=== PATIENT | female | born 1960 | race African-American/Black ===

== ENCOUNTER 2016-07-21 06:38 | Emergency (ER) | payer OTHER ==
[~2016-07-21] VITALS: Ht 167.6 cm; Wt 81.6 kg
[~2016-07-21 06:38] MED LIST: BACITRACIN1 EACH TOPIC; BACTRIM DS TAB1 EAC1 ORAL; BACTRIM-DS1 EA ORAL; BENADRYL25 MG PO; CEPHALEXIN500 MG ORAL; CLINDAMYCIN HC300 MG ORAL; LEVOTHYROXINE25 MCG ORAL; LITHIUM CARBON300 MG ORAL; PERIDEX 0.12% O16 OZ ORAL; RISPERDAL0.25 MG ORAL; SYNTHROID25 MCG ORAL
[2016-07-21] MEDS ORDERED: SYNTHROID137 MCG ORAL (06:56)
[2016-07-21 07:00] VITALS: BP 122/79
[2016-07-21] MEDS ORDERED: ZYRTEC10 MG ORAL (07:14)
[2016-07-21 07:35] VITALS: BP 122/79
--- NOTE | 2016-07-21 08:10 | Emergency Room Report ---
History of Present Illness General Chief Complaint: Earache Source: Patient Present Illness HPI Patient presents with complaints of pressure to both the ears Ongoing for the past 2-3 days Patient had a mild cold a few days ago with sore throat which has symptoms have improved Denies any chest pain or shortness of breath denies any headache or visual changes denies any neck pain or photophobia pain was 3/10 improved with taking Advil at home denies any other rash denies any change in hearing Allergies: Coded Allergies: AMOXICILLIN (Verified Allergy, Unknown, 07/21/16) Patient History Past Medical History: see triage record Pertinent Family History: none Last Menstrual Period: history of hysterectomy 2003 Now: No Reviewed Nursing Documentation: PMH: Agreed, PSxH: Agreed Nursing Documentation-PMH Hx Hypertension: Yes Hx COPD: Yes Hx Diabetes: No History Of Psychiatric Problem: Yes - bipolar Review of Systems All Other Systems: negative except mentioned in HPI Physical Exam Vital Signs Date Time Temp Pulse Resp B/P Pulse Ox O2 Delivery O2 Flow Rate FiO2 07/21/16 06:44 98.4 88 14 122/79 99 Room Air Sp02 EP Interpretation: reviewed, normal General Appearance: well appearing, no apparent distress Head: normocephalic, atraumatic Eyes: bilateral eye EOMI, bilateral eye PERRL ENT: hearing grossly normal, normal pharynx, TMs + canals normal, uvula midline Neck: full range of motion, supple, no meningismus, no bony tend Gastrointestinal: no hernia, no pulsatile mass, no rebound Musculoskeletal: normal inspection Neurologic: oriented x3, responsive, motor strength/tone normal, sensory intact Psychiatric: mood/affect normal Skin: normal color, no rash, warm/dry, palpation normal Lymphatic: normal inspection, no adenopathy Medical Decision Making Diagnostic Impression: Primary Impression: Earache symptoms in left ear ER Course Patient's ear exam is at baseline levels I do not appreciate any erythema or inflammation canal is also clear Possibly secondary to the recent URI symptoms and possible fluid behind the ears But this was not clinically appreciated Patient was provided with decongestant and will have initial conservative outpatient trial Last Vital Signs Date Time Temp Pulse Resp B/P Pulse Ox O2 Delivery O2 Flow Rate FiO2 07/21/16 07:35 98.4 88 14 122/79 99 Room Air Status: unchanged Disposition: HOME, SELF-CARE Condition: Stable Scripts Cetirizine Hcl* (ZYRTEC*) 10 Mg Tablet 10 MG ORAL DAILY, #20 TAB 0 Refills Prov: HAMMAD HASTINGS D.O. 07/21/16 Referrals: [facility] (PCP) Patient Instructions: Earache Additional Instructions: Patient is provided with the discharge instructions notified to follow up with primary doctor in the next 2-3 days otherwise return to the er with any worsening symptoms. HAMMAD HASTINGS D.O. Jul 21, 2016 08:10
== END 2016-07-21 07:37 | disposition home or self-care (01) ==
LOC: EMR 07:07
DX: H92.02 Otalgia, left ear (principal); F31.9 Bipolar disorder, unspecified; I10 Essential (primary) hypertension; Z90.710 Acquired absence of both cervix and uterus; Z88.1 Allergy status to other antibiotic agents
CPT/HCPCS: 99282

== ENCOUNTER 2017-11-02 14:09 | Emergency (ER) | payer OTHER ==
[~2017-11-02] VITALS: Ht 165.1 cm; Wt 81.6 kg
[~2017-11-02 14:09] MED LIST changes: +SYNTHROID137 MCG ORAL; +ZYRTEC10 MG ORAL
[2017-11-02] MEDS ORDERED: CLINDAMYCIN PO (14:25)
[2017-11-02] MEDS ORDERED: Isovue-300 100ml vial INJ PRN (14:45)
[2017-11-02 14:50] VITALS: BP 118/79
[2017-11-02 15:01] LABS: APPEARANCE,URINE CLEAR; BILIRUBIN, URINE NEGATIVE (NEGATIVE); COLOR,URINE YELLOW; GLUCOSE, URINE (UA) NEGATIVE (NEGATIVE); KETONES,URINE NEGATIVE (NEGATIVE); LEUKOCYTE ESTERASE ,URINE 1+ (NEGATIVE); NITRITE,URINE NEGATIVE (NEGATIVE); PH,URINE 7 (4.5-8.0); PROTEIN,URINE 3+ (NEGATIVE); UROBILINOGEN,URINE 1 MG/DL (0.0-1.0)
[2017-11-02 15:03] LABS: HEMATOCRIT 40.7 % (37.0-47.0); HEMOGLOBIN 13.8 G/DL (12.0-16.0); MEAN CORPUSCULAR VOLUME 89 FL (80-99); PLATELET COUNT 292 K/UL (150-450); RED BLOOD COUNT 4.59 M/UL (4.20-5.40); RED CELL DISTRIBUTION WIDTH 12.3 % (11.6-14.8); WHITE BLOOD COUNT 17.7 K/UL (4.8-10.8)
[2017-11-02 15:18] LABS: ANION GAP 9 mmol/L (5-15); BLOOD UREA NITROGEN 11 mg/dL (7-18); CALCIUM 9.6 MG/DL (8.5-10.1); CARBON DIOXIDE 28 MMOL/L (21-32); CHLORIDE 96 MMOL/L (98-107); CREATININE 1.3 MG/DL (0.55-1.30); POTASSIUM 3.2 MMOL/L (3.5-5.1); SODIUM 133 MMOL/L (136-145)
[2017-11-02 15:29] LABS: ALANINE AMINOTRANSFERASE 43 U/L (12-78); ALBUMIN 3.5 G/DL (3.4-5.0); ALBUMIN/GLOBULIN RATIO 0.8 (1.0-2.7); ALKALINE PHOSPHATASE 79 U/L (46-116); ASPARTATE AMINO TRANSFERASE 31 U/L (15-37); BILIRUBIN,TOTAL 1.6 MG/DL (0.2-1.0)
[2017-11-02 15:30] LABS: BILIRUBIN,DIRECT 0.3 MG/DL (0.0-0.3)
--- NOTE | 2017-11-02 16:06 | Diagnostic Imaging Report ---
Indication: Abdominal pain Technique: Continuous helical transaxial imaging of the abdomen and pelvis was obtained from the lung bases to the pubic symphysis during intravenous contrast administration. Coronal 2-D reformats were also obtained. Study obtained in a Siemens sensation [address] Automatic Exposure Control was utilized. Total Dose length Product (DLP): 881.[address] Dose Index Volume (CTDIvol): 16.14 mGy Comparison: None Findings: There is moderate gallbladder wall edema. There is a rounded low-attenuation focus suspicious for a gallstone at the gallbladder base. There is a moderate degree of surrounding soft tissue stranding which involves the area immediately subjacent to the gallbladder but also involving the distal part of the stomach and duodenum. The findings probably related to cholecystitis. Differential includes peptic ulcer disease and duodenitis. Correlate clinically. There is a 3 cm well-circumscribed air and fluid-containing focus adjacent to the gallbladder and pylorus. This may be a duodenal diverticulum. There is periportal edema also present. Small amount of free fluid noted within the pelvis. No evidence of bowel obstruction or free air. Right renal cyst noted. The liver and spleen are unremarkable. The lung bases are clear. Adrenal glands, pancreas appear unremarkable. IMPRESSION: Inflammation in the right upper quadrant of the abdomen. Suspect this is secondary to acute cholecystitis given the moderate wall thickening and suspected stone within the gallbladder lumen. Differential includes peptic ulcer disease and duodenitis. Duodenitis is present and is probably a secondary phenomenon. Periportal edema. No definite abscess. Mild free fluid in the pelvis. Atherosclerotic disease. Right renal cyst The CT scanner at [facility] is accredited by the [employer] and the scans are performed using dose optimization techniques as appropriate to a performed exam including Automatic Exposure control.
[2017-11-02 16:57] VITALS: BP 126/87
[2017-11-02] MEDS ORDERED: Levofloxacin 500mg tab ORAL ONE (17:15)
[2017-11-02 17:16] VITALS: BP 126/87
--- NOTE | 2017-11-02 19:00 | Emergency Room Report ---
History of Present Illness General Chief Complaint: Abdominal Pain Source: Patient Present Illness HPI Patient is a 57-year-old female who presented after increased right-sided abdominal pain for the past few days. Patient reports having increased abdominal discomfort. She stated that she vomited one time. She denies any fever. She reports having worsening pain with movement. She denies recent trauma. Allergies: Coded Allergies: AMOXICILLIN (Verified Allergy, Unknown, Rash, 11/02/17) Patient History Past Medical History: see triage record Past Surgical History: unable to obtain Nursing Documentation-PMH Hx Hypertension: Yes Hx COPD: Yes Hx Diabetes: No Review of Systems All Other Systems: negative except mentioned in HPI Physical Exam Vital Signs Date Time Temp Pulse Resp B/P (MAP) Pulse Ox O2 Delivery O2 Flow Rate FiO2 11/02/17 14:20 98.7 111 20 120/72 97 Room Air 98.8 Sp02 EP Interpretation: reviewed, normal General Appearance: normal inspection, well appearing, no apparent distress, alert, GCS 15 Head: atraumatic ENT: normal ENT inspection, hearing grossly normal, normal voice Neck: normal inspection, full range of motion, supple, no bony tend Respiratory: normal inspection, lungs clear, normal breath sounds, no respiratory distress, no retraction, no wheezing Cardiovascular #1: regular rate, rhythm, no edema Gastrointestinal: normal bowel sounds, soft, tenderness, hepatomegaly Genitourinary: no CVA tenderness Musculoskeletal: normal inspection, back normal, normal range of motion Neurologic: normal inspection, alert, oriented x3, responsive, motor vehicle or caravan salesperson III-XII nml as tested, speech normal Psychiatric: normal inspection, judgement/insight normal, mood/affect normal Skin: normal inspection, normal color, no rash Medical Decision Making Diagnostic Impression: Primary Impression: Cholecystitis, acute with cholelithiasis ER Course Patient presented for abdominal pain. Differential diagnoses included ischemic bowel, appendicitis, perforated viscus, abdominal aortic aneurysm, inferior myocardial infarction, viral gastroenteritis Because of complexity of patient's case laboratory testing and imaging studies were ordered. The CT imaging read by radiology showed evidence of acute cholecystitis and possible duodenitis. The patient was given oral antibiotics. The patient was advised risk benefits alternatives of leaving AGAINST MEDICAL ADVICE and he indicated understanding and all questions are answered patient still continued want to leave and signed AGAINST MEDICAL ADVICE. Despite risks including but not limited to disability and worsening of current lifestyle. Patient was advised that she needed to be hospitalized for further management of cholecystitis which may cause worsening infection, perforation of her intestine or gallbladder or worsening surgical complications. The patient was advised she could return if she changed her mind. Labs Test 11/02/17 14:40 White Blood Count 17.7 K/UL (4.8-10.8) Red Blood Count 4.59 M/UL (4.20-5.40) Hemoglobin 13.8 G/DL (12.0-16.0) Hematocrit 40.7 % (37.0-47.0) Mean Corpuscular Volume 89 FL (80-99) Mean Corpuscular Hemoglobin 30.2 PG (27.0-31.0) Mean Corpuscular Hemoglobin Concent 34.0 G/DL (32.0-36.0) Red Cell Distribution Width 12.3 % (11.6-14.8) Platelet Count 292 K/UL (150-450) Mean Platelet Volume 6.1 FL (6.5-10.1) Neutrophils (%) (Auto) % (45.0-75.0) Lymphocytes (%) (Auto) % (20.0-45.0) Monocytes (%) (Auto) % (1.0-10.0) Eosinophils (%) (Auto) % (0.0-3.0) Basophils (%) (Auto) % (0.0-2.0) Differential Total Cells Counted 100 Neutrophils % (Manual) 87 % (45-75) Lymphocytes % (Manual) 7 % (20-45) Monocytes % (Manual) 6 % (1-10) Eosinophils % (Manual) 0 % (0-3) Basophils % (Manual) 0 % (0-2) Band Neutrophils 0 % (0-8) Platelet Estimate Adequate Platelet Morphology Normal Red Blood Cell Morphology Normal Prothrombin Time 10.7 SEC (9.30-11.50) Prothromb Time International Ratio 1.0 (0.9-1.1) Activated Partial Thromboplast Time 32 SEC (23-33) Urine Color Yellow Urine Appearance Clear Urine pH 7 (4.5-8.0) Urine Specific [place] 1.010 (1.005-1.035) Urine Protein 3+ (NEGATIVE) Urine Glucose (UA) Negative (NEGATIVE) Urine Ketones Negative (NEGATIVE) Urine Occult Blood 2+ (NEGATIVE) Urine Nitrite Negative (NEGATIVE) Urine Bilirubin Negative (NEGATIVE) Urine Urobilinogen 1 MG/DL (0.0-1.0) Urine Leukocyte Esterase 1+ (NEGATIVE) Urine RBC 2-4 /HPF (0 - 2) Urine WBC 0-2 /HPF (0 - 2) Urine Squamous Epithelial Cells Few /LPF (NONE/OCC) Urine Amorphous Sediment Few /LPF (NONE) Urine Bacteria Few /HPF (NONE) Sodium Level 133 MMOL/L (136-145) Potassium Level 3.2 MMOL/L (3.5-5.1) Chloride Level 96 MMOL/L (98-107) Carbon Dioxide Level 28 MMOL/L (21-32) Anion Gap 9 mmol/L (5-15) Blood Urea Nitrogen 11 mg/dL (7-18) Creatinine 1.3 MG/DL (0.55-1.30) Estimat Glomerular Filtration Rate 50.8 mL/min (>60) Glucose Level 146 MG/DL (74-106) Calcium Level 9.6 MG/DL (8.5-10.1) Total Bilirubin 1.6 MG/DL (0.2-1.0) Direct Bilirubin 0.3 MG/DL (0.0-0.3) Aspartate Amino Transf (AST/SGOT) 31 U/L (15-37) Alanine Aminotransferase (ALT/SGPT) 43 U/L (12-78) Alkaline Phosphatase 79 U/L (46-116) Total Protein 8.1 G/DL (6.4-8.2) Albumin 3.5 G/DL (3.4-5.0) Globulin 4.6 g/dL Albumin/Globulin Ratio 0.8 (1.0-2.7) Lipase 85 U/L (73-393) Last Vital Signs Date Time Temp Pulse Resp B/P (MAP) Pulse Ox O2 Delivery O2 Flow Rate FiO2 11/02/17 17:16 98.7 101 19 126/87 97 Room Air 98.8 Status: unchanged Disposition: AGAINST MEDICAL ADVICE Condition: Serious Referrals: NON PHYSICIAN (PCP) Fernando Neumann November 02, 2017 19:00
== END 2017-11-02 17:55 | disposition left against medical advice (07) ==
LOC: EMR 15:16 → CANBEDREQ 17:14 → EMR 17:55
DX: K81.0 Acute cholecystitis (principal); J44.9 Chronic obstructive pulmonary disease, unspecified; I10 Essential (primary) hypertension; Z88.1 Allergy status to other antibiotic agents
CPT/HCPCS: 36415; 74177; 80053; 81003; 82248; 83690; 85007; 85025; 85610; 85730; 99283; Q9967

== ENCOUNTER 2017-11-03 18:05 | Emergency (ER) | payer OTHER ==
[~2017-11-03] VITALS: Ht 167.6 cm; Wt 81.6 kg
[~2017-11-03 18:05] MED LIST changes: +CLINDAMYCIN PO
--- NOTE | 2017-11-03 18:32 | Emergency Room Report ---
History of Present Illness General Chief Complaint: Abdominal Pain Present Illness HPI Patient is a 57-year-old female seen by me yesterday for abdominal pain. Patient was noted to have a CT imaging with multiple gallstones as well as laboratory changes consistent with cholecystitis. The patient was additionally noted to have some duodenitis on CT. The patient reports having a persistent pain. She was given a dose of antibiotics yesterday. She left AGAINST MEDICAL ADVICE. Allergies: Coded Allergies: AMOXICILLIN (Verified Allergy, Unknown, Rash, 11/02/17) Patient History Past Medical History: see triage record Reviewed Nursing Documentation: PMH: Agreed; PSxH: Agreed Nursing Documentation-PMH Hx Hypertension: Yes Hx COPD: Yes Hx Diabetes: No Review of Systems All Other Systems: negative except mentioned in HPI Physical Exam Vital Signs Date Time Temp Pulse Resp B/P (MAP) Pulse Ox O2 Delivery O2 Flow Rate FiO2 11/03/17 18:08 99.0 115 20 119/72 96 Room Air 99.0 Sp02 EP Interpretation: reviewed, normal General Appearance: normal inspection, well appearing, no apparent distress, alert, obese Head: atraumatic ENT: normal ENT inspection, hearing grossly normal, normal voice Neck: normal inspection, full range of motion, supple, no bony tend Respiratory: normal inspection, lungs clear, normal breath sounds, no respiratory distress, no retraction, no wheezing Cardiovascular #1: regular rate, rhythm, no edema Gastrointestinal: normal inspection, normal bowel sounds, non tender, soft, no guarding, no hernia Genitourinary: no CVA tenderness Musculoskeletal: normal inspection, back normal, normal range of motion Neurologic: normal inspection, alert, oriented x3, responsive, category planner III-XII nml as tested, speech normal Psychiatric: normal inspection, judgement/insight normal, mood/affect normal Skin: normal inspection, normal color, no rash Medical Decision Making Diagnostic Impression: Primary Impression: Cholecystitis, acute with cholelithiasis ER Course Patient presented for abdominal pain. Differential diagnoses included ischemic bowel, appendicitis, perforated viscus, abdominal aortic aneurysm, inferior myocardial infarction, viral gastroenteritis. Because of complexity of patient' s case laboratory testing and imaging studies were ordered. Because of complexity of patient's case laboratory testing and imaging studies were ordered. Laboratory testing showed a persistent elevated white blood count. Patient was discussed with Dr.Manuel rodriguez for [facility] facility for transfer to [facility]. Labs Test 11/03/17 18:30 White Blood Count 15.4 K/UL (4.8-10.8) Red Blood Count 4.06 M/UL (4.20-5.40) Hemoglobin 12.3 G/DL (12.0-16.0) Hematocrit 35.8 % (37.0-47.0) Mean Corpuscular Volume 88 FL (80-99) Mean Corpuscular Hemoglobin 30.4 PG (27.0-31.0) Mean Corpuscular Hemoglobin Concent 34.4 G/DL (32.0-36.0) Red Cell Distribution Width 12.0 % (11.6-14.8) Platelet Count 245 K/UL (150-450) Mean Platelet Volume 6.6 FL (6.5-10.1) Neutrophils (%) (Auto) 84.9 % (45.0-75.0) Lymphocytes (%) (Auto) 7.7 % (20.0-45.0) Monocytes (%) (Auto) 6.0 % (1.0-10.0) Eosinophils (%) (Auto) 1.0 % (0.0-3.0) Basophils (%) (Auto) 0.4 % (0.0-2.0) Prothrombin Time 10.5 SEC (9.30-11.50) Prothromb Time International Ratio 1.0 (0.9-1.1) Activated Partial Thromboplast Time 38 SEC (23-33) Sodium Level 133 MMOL/L (136-145) Potassium Level 3.0 MMOL/L (3.5-5.1) Chloride Level 97 MMOL/L (98-107) Carbon Dioxide Level 29 MMOL/L (21-32) Anion Gap 7 mmol/L (5-15) Blood Urea Nitrogen 17 mg/dL (7-18) Creatinine 1.6 MG/DL (0.55-1.30) Estimat Glomerular Filtration Rate 40.0 mL/min (>60) Glucose Level 173 MG/DL (74-106) Calcium Level 9.7 MG/DL (8.5-10.1) Last Vital Signs Date Time Temp Pulse Resp B/P (MAP) Pulse Ox O2 Delivery O2 Flow Rate FiO2 11/03/17 18:08 99.0 115 20 119/72 96 Room Air 99.0 Status: unchanged Disposition: XFER SHT-TRM HOSP Condition: Serious Referrals: [facility] (PCP) Fernando Neumann November 03, 2017 18:32
[2017-11-03 19:01] LABS: BASOPHILS % (AUTO) 0.4 % (0.0-2.0); HEMATOCRIT 35.8 % (37.0-47.0); HEMOGLOBIN 12.3 G/DL (12.0-16.0); LYMPHOCYTES % (AUTO) 7.7 % (20.0-45.0); MEAN CORPUSCULAR VOLUME 88 FL (80-99); NEUTROPHILS % (AUTO) 84.9 % (45.0-75.0); PLATELET COUNT 245 K/UL (150-450); RED BLOOD COUNT 4.06 M/UL (4.20-5.40); WHITE BLOOD COUNT 15.4 K/UL (4.8-10.8)
[2017-11-03 19:14] LABS: ANION GAP 7 mmol/L (5-15); BLOOD UREA NITROGEN 17 mg/dL (7-18); CALCIUM 9.7 MG/DL (8.5-10.1); CARBON DIOXIDE 29 MMOL/L (21-32); CHLORIDE 97 MMOL/L (98-107); CREATININE 1.6 MG/DL (0.55-1.30); SODIUM 133 MMOL/L (136-145)
[2017-11-03 19:24] LABS: ALANINE AMINOTRANSFERASE 188 U/L (12-78); ALBUMIN/GLOBULIN RATIO 0.6 (1.0-2.7); ALKALINE PHOSPHATASE 141 U/L (46-116); ASPARTATE AMINO TRANSFERASE 100 U/L (15-37); BILIRUBIN,TOTAL 1.4 MG/DL (0.2-1.0)
[2017-11-03 19:27] LABS: BILIRUBIN,DIRECT 0.4 MG/DL (0.0-0.3)
[2017-11-03 19:35] LABS: APPEARANCE,URINE CLEAR; BILIRUBIN, URINE NEGATIVE (NEGATIVE); GLUCOSE, URINE (UA) NEGATIVE (NEGATIVE); KETONES,URINE NEGATIVE (NEGATIVE); LEUKOCYTE ESTERASE ,URINE 1+ (NEGATIVE); NITRITE,URINE NEGATIVE (NEGATIVE); PH,URINE 6 (4.5-8.0); PROTEIN,URINE 3+ (NEGATIVE); UROBILINOGEN,URINE 1 MG/DL (0.0-1.0)
[2017-11-03 19:36] LABS: COLOR,URINE YELLOW
[2017-11-03 20:04] VITALS: BP 112/68
[2017-11-03 20:32] VITALS: BP 112/68
== END 2017-11-03 20:33 | disposition short-term general hospital (02) ==
LOC: EMR 18:29
DX: K80.00 Calculus of gallbladder with acute cholecystitis without obstruction (principal); E11.9 Type 2 diabetes mellitus without complications; J44.9 Chronic obstructive pulmonary disease, unspecified; I10 Essential (primary) hypertension; Z88.0 Allergy status to penicillin
CPT/HCPCS: 36415; 80053; 81003; 82248; 83690; 85025; 85610; 85730; 86850; 86900; 86901; 96374; 99285; J2405

== ENCOUNTER 2017-11-12 12:06 | Emergency (ER) | payer OTHER ==
[~2017-11-12] VITALS: Ht 167.6 cm; Wt 79.4 kg
--- NOTE | 2017-11-12 12:41 | Emergency Room Report ---
History of Present Illness General Chief Complaint: Wound Recheck/Suture Removal Present Illness HPI 57 yo female patient presents to the ER for wound change. Patient reports hx of gallbladder surgery. Patient was previously seen in [facility] for complications following procedure and transferred to another hospital. Patient reports was discharged 2 days ago without complications. patient reports that her doctor, Dr. Martin, has scheduled for follow-up appointment for a week from Wednesday. Patient was instructed by surgeon to come to ER for wound dressing change because his office is not open currently. patient denies acute symptoms at this time. Patient denies fever, chest pain, shortness breath, abdominal pain, nausea, vomiting, diarrhea. Allergies: Coded Allergies: AMOXICILLIN (Verified Allergy, Unknown, Rash, 11/02/17) Patient History Past Medical History: see triage record Reviewed Nursing Documentation: PMH: Agreed; PSxH: Agreed Nursing Documentation-PMH Hx Hypertension: Yes Hx COPD: Yes Hx Diabetes: No Hx Gastrointestinal Problems: Yes - Hysterectomy (2003), gall bladder surgery Review of Systems All Other Systems: negative except mentioned in HPI Physical Exam Vital Signs Date Time Temp Pulse Resp B/P (MAP) Pulse Ox O2 Delivery O2 Flow Rate FiO2 11/12/17 12:21 98.7 86 18 116/76 98 Room Air 98.8 Sp02 EP Interpretation: reviewed, normal General Appearance: well appearing, no apparent distress, alert, GCS 15, non- toxic Head: normocephalic, atraumatic Eyes: bilateral eye normal inspection, bilateral eye PERRL Neck: full range of motion Respiratory: lungs clear, normal breath sounds, no rhonchi, no respiratory distress, no accessory muscle use, no wheezing, speaking full sentences Cardiovascular #1: regular rate, rhythm, no edema Musculoskeletal: back normal, digits/nails normal, gait/station normal, normal range of motion, non-tender Psychiatric: mood/affect normal Skin: other - abdominal drain tube, RLQ: no erythema, no edema, no TTP Medical Decision Making PA Attestation Dr. Vernon is my supervising Physician whom patient management has been discussed with. Diagnostic Impression: Primary Impression: Encounter for postoperative wound check ER Course Pt. presents to the ED requesting wound check on abdomen. Ddx considered but are not limited to cellulitis, abscess, wound check. Vital signs: are WNL, pt. is afebrile ER COURSE: PE 4 incision sites, one with draining tube. Dressing covering draining dirty with dried blood, will change this dressing; other dressings clean, do not require change. patient is afebrile, no signs of toxicity, no acute complaints, patient does not require labs at this time. Wound has no signs of infection., no erythema, edema, TTP, sensation is intact to light touch, no active bleeding. Wound redressed with sterile gauze and dressing. patient able ambulate without difficulty, no acute distress, stable for discharge. DISCHARGE: Patient instructed to continue with medications per initial ER provider instructions. At this time pt. is stable for d/c to home. Patient resting comfortably, in no acute distress, nontoxic appearing. Will provide printed patient care instructions and any necessary prescriptions. Care plan and follow up instructions have been discussed with the patient prior to discharge. Patient instructed to follow-up with primary care provider for further treatment and referral. Patient questions asked and answered. ER precautions given. Patient instructed to return to ER immediately for any new or worsening of symptoms including but not limited to fever, worsening of pain symptoms. - Please note that this Emergency Department Report was dictated using [employer] operations coordinator technology software, occasionally this can lead to erroneous entry secondary to interpretation by the dictation equipment. Last Vital Signs Date Time Temp Pulse Resp B/P (MAP) Pulse Ox O2 Delivery O2 Flow Rate FiO2 11/12/17 12:21 98.7 86 18 116/76 98 Room Air 98.8 Disposition: HOME, SELF-CARE Condition: Stable Patient Instructions: Wound Check Additional Instructions: Followup with primary care provider at scheduled appointment, return to ER sooner if symptoms present. Take medications as directed. Patient questions asked and answered. ER precautions given, patient instructed to return to ER immediately for any new or worsening of symptoms. Last Hernandez November 12, 2017 12:41
[2017-11-12 13:03] VITALS: BP 116/76
[2017-11-12 13:05] VITALS: BP 116/76
== END 2017-11-12 13:05 | disposition home or self-care (01) ==
LOC: EMR 12:37
DX: Z48.01 Encounter for change or removal of surgical wound dressing (principal); I10 Essential (primary) hypertension; J44.9 Chronic obstructive pulmonary disease, unspecified; Z88.0 Allergy status to penicillin
CPT/HCPCS: 99283

== ENCOUNTER 2017-11-21 12:46 | Emergency (ER) | payer OTHER ==
[~2017-11-21] VITALS: Ht 167.6 cm; Wt 68.0 kg
[2017-11-21 13:20] VITALS: BP 109/76
--- NOTE | 2017-11-21 13:22 | Emergency Room Report ---
History of Present Illness General Chief Complaint: Wound Recheck/Suture Removal Source: Patient Present Illness HPI Patient presents with request for evaluation and possible changing of her abdominal wound dressing Patient had labs A cholecystectomy 2 weeks ago and has a drain in place Patient is seeing her surgeon tomorrow for evaluation however presents for changing of the dressing Denies any fevers and eyes any discharge denies any abdominal pain Allergies: Coded Allergies: AMOXICILLIN (Verified Allergy, Unknown, Rash, 11/02/17) Patient History Past Medical History: see triage record Pertinent Family History: none Reviewed Nursing Documentation: PMH: Agreed; PSxH: Agreed Nursing Documentation-PMH Hx Hypertension: Yes Hx COPD: Yes Hx Diabetes: No Hx Gastrointestinal Problems: Yes - Hysterectomy (2003), gall bladder surgery Review of Systems All Other Systems: negative except mentioned in HPI Physical Exam Vital Signs Date Time Temp Pulse Resp B/P (MAP) Pulse Ox O2 Delivery O2 Flow Rate FiO2 11/21/17 12:53 98.1 87 20 109/76 99 Room Air 98.1 Sp02 EP Interpretation: reviewed, normal General Appearance: well appearing, no apparent distress Head: normocephalic, atraumatic Eyes: bilateral eye PERRL, bilateral eye EOMI ENT: hearing grossly normal, normal pharynx, TMs + canals normal, uvula midline Neck: full range of motion, supple, no meningismus, no bony tend Respiratory: lungs clear, normal breath sounds, no rhonchi, no respiratory distress, no retraction, no accessory muscle use Cardiovascular #1: normal peripheral pulses, regular rate, rhythm, no edema, no gallop, no JVD, no murmur Gastrointestinal: soft, no mass, no organomegaly, non-distended, no guarding, no hernia, no pulsatile mass, no rebound, other - Drain tube in place in the right mid lower abdominal area, no surrounding cellulitis, no drainage soft touch Genitourinary: no CVA tenderness Musculoskeletal: normal inspection Neurologic: oriented x3, responsive, broadcast field supervisor III-XII nml as tested, motor strength/ tone normal, sensory intact Psychiatric: mood/affect normal Skin: no rash, warm/dry, palpation normal Lymphatic: normal inspection, no adenopathy Medical Decision Making Diagnostic Impression: Primary Impression: wound check Additional Impression: Encounter for dressing change or suture removal ER Course Given the patient's presentation the dressing that was in place was removed it appeared extremely dirty, and patient reports the last time it was changed was here about 7 days ago. The dressing was changed and the patient is stable for follow-up tomorrow with her general surgeon, Last Vital Signs Date Time Temp Pulse Resp B/P (MAP) Pulse Ox O2 Delivery O2 Flow Rate FiO2 11/21/17 12:53 98.1 87 20 109/76 99 Room Air 98.1 Status: improved Disposition: HOME, SELF-CARE Condition: Improved Patient Instructions: Wound Check, Dressing Change Additional Instructions: Patient is provided with the discharge instructions notified to follow up with primary doctor in the next 2-3 days otherwise return to the er with any worsening symptoms. Please note that this report is being documented using [employer] technology. This can lead to erroneous entry secondary to incorrect interpretation by the dictating instrument. Clau Pugh DO November 21, 2017 13:22
[2017-11-21 15:45] VITALS: BP 109/76
== END 2017-11-21 15:45 | disposition home or self-care (01) ==
LOC: EMR 13:15
DX: Z48.01 Encounter for change or removal of surgical wound dressing (principal); Z90.49 Acquired absence of other specified parts of digestive tract; Z88.0 Allergy status to penicillin; I10 Essential (primary) hypertension; J44.9 Chronic obstructive pulmonary disease, unspecified
CPT/HCPCS: 99282

== ENCOUNTER 2019-10-18 20:51 | Emergency (ER) | payer OTHER ==
[~2019-10-18] VITALS: Ht 167.6 cm; Wt 81.6 kg
[2019-10-18] MEDS ORDERED: TRAZODONE HCL150 MG ORAL (21:04)
[2019-10-18] MEDS ORDERED: NORVASC5 MG ORAL (21:04)
[2019-10-18 21:05] VITALS: BP 153/92
--- NOTE | 2019-10-18 21:05 | NUR ---
ED Nurse Note: Pt walked into ED for c/o chest pain onset 3 days ago. Pt states pain is sharp/throbbing in nature and radiates to shoulders and up the back of her head. Pt is aaox4, breathing is normal and unlabored, no cardiac distress noted. Pt placed on teletypesetter monitor. EKG bedside, will continue to monitor. No n/v/d noted.
--- NOTE | 2019-10-18 21:14 | Emergency Room Report ---
History of Present Illness General Chief Complaint: Headache Source: Patient Present Illness HPI Disclaimer: Please note that this report is being documented using DRAGON technology. This can lead to erroneous entry secondary to incorrect interpretation by the dictating instrument. HPI: 59-year-old female history of hypertension presents for evaluation of palpitations. Symptoms present for the past 2 days. She notes a funny sensation in her chest as well as sharp stabbing chest pains that are worse with arm movements. She feels pain radiating up into the shoulders the back of the neck and the back of the head causing a mild headache. She denied any pressure-like sensation, shortness of breath, cough, fever, chills, nausea, vomiting, diaphoresis, abdominal pain, diarrhea or other changes in her health. No prior history of CAD. She does take blood pressure medication has a long smoking history. She is trying to quit smoking currently. Currently not experiencing any pain or discomfort. PMH: Hypertension, depression, hypothyroidism PSH: Partial hysterectomy Allergies: Amoxicillin Social Hx: Regular tobacco use, currently quitting Allergies: Coded Allergies: AMOXICILLIN (Verified Allergy, Unknown, Rash, 11/02/17) COVID-19 Screening Contact w/high risk pt: No Recent Travel to affected area: No Experienced COVID-19 symptoms?: No Patient History Last Menstrual Period: 1999 Now: No : 4 Para: 0 Nursing Documentation-PMH Hx Cardiac Problems: No - hypothyroid Hx Hypertension: Yes Hx COPD: Yes Hx Diabetes: No Hx Gastrointestinal Problems: Yes - Hysterectomy (2003), gall bladder surgery History Of Psychiatric Problem: Yes - bipolar Hx Neurological Problems: Yes - insomnia Review of Systems All Other Systems: negative except mentioned in HPI Physical Exam Vital Signs Date Time Temp Pulse Resp B/P (MAP) Pulse Ox O2 Delivery O2 Flow Rate FiO2 10/18/19 20:56 98.1 90 17 153/92 (112) 97 Room Air General: Awake and alert, no acute distress HEENT: NC/AT. EOMI. Chest Wall: No tenderness, no deformity Cardiovascular: RRR. S1 and S2 normal. No murmur appreciated Resp: Normal work of breathing. No cough, wheezing or crackles appreciated Abdomen: Abdomen is soft, nondistended. Nontender Skin: Intact. No abrasions, laceration or rash over the exposed skin MSK: Normal tone and bulk. Moving all extremities. No obvious deformity. Neuro: Awake and alert. Mentating appropriately. Medical Decision Making ER Course 59-year-old female presents for evaluation of chest pain/palpitations. Differential includes was not limited to arrhythmia, musculoskeletal chest pain , ACS, angina, dehydration, bronchitis, pneumonia, viral syndrome, tension headache, muscle spasms. Will obtain labs, EKG, chest x-ray. Toradol for myalgias. Laboratory Tests Test 10/18/19 21:20 White Blood Count 6.1 K/UL (4.8-10.8) Red Blood Count 4.64 M/UL (4.20-5.40) Hemoglobin 13.4 G/DL (12.0-16.0) Hematocrit 42.0 % (37.0-47.0) Mean Corpuscular Volume 90 FL (80-99) Mean Corpuscular Hemoglobin 28.8 PG (27.0-31.0) Mean Corpuscular Hemoglobin Concent 31.8 G/DL (32.0-36.0) L Red Cell Distribution Width 14.3 % (11.6-14.8) Platelet Count 333 K/UL (150-450) Mean Platelet Volume 6.2 FL (6.5-10.1) L Neutrophils (%) (Auto) 48.2 % (45.0-75.0) Lymphocytes (%) (Auto) 41.0 % (20.0-45.0) Monocytes (%) (Auto) 6.8 % (1.0-10.0) Eosinophils (%) (Auto) 2.3 % (0.0-3.0) Basophils (%) (Auto) 1.7 % (0.0-2.0) Sodium Level 143 MMOL/L (136-145) Potassium Level 3.6 MMOL/L (3.5-5.1) Chloride Level 104 MMOL/L (98-107) Carbon Dioxide Level 26 MMOL/L (21-32) Anion Gap 13 mmol/L (5-15) Blood Urea Nitrogen 13 mg/dL (7-18) Creatinine 1.3 MG/DL (0.55-1.30) Estimated Glomerular Filtration Rate 50.4 mL/min (>60) Glucose Level 110 MG/DL (74-106) H Calcium Level 9.3 MG/DL (8.5-10.1) Total Bilirubin 0.4 MG/DL (0.2-1.0) Aspartate Amino Transferase (AST) 14 U/L (15-37) L Alanine Aminotransferase (ALT) 29 U/L (12-78) Alkaline Phosphatase 90 U/L (46-116) Troponin I 0.002 ng/mL (0.000-0.056) Total Protein 7.8 G/DL (6.4-8.2) Albumin 3.9 G/DL (3.4-5.0) Globulin 3.9 g/dL Albumin/Globulin Ratio 1.0 (1.0-2.7) EKG Diagnostic Results EKG Time: 21:00 Rate: normal Rhythm: NSR ST Segments: no acute changes Other Impression Sinus rhythm, normal axis, normal intervals, no ST segment changes. Rhythm Strip Diag. Results Rhythm Strip Time: 21:00 Rate: 70s Rhythm: NSR, no PVC's, no ectopy Chest X-Ray Diagnostic Results Chest X-Ray Diagnostic Results : Chest X-Ray Ordered: Yes # of Views/Limited/Complete: 1 View Indication: Chest Pain EP Interpretation: Yes Interpretation: no consolidation, no effusion, no pneumothorax, no acute cardiopulmonary disease Impression: No acute disease Electronically Signed by: Electronically signed by Dr. Jorge Luis Gutierrez Reevaluation Time: 22:00 Last Vital Signs Date Time Temp Pulse Resp B/P (MAP) Pulse Ox O2 Delivery O2 Flow Rate FiO2 10/18/19 20:56 98.1 90 17 153/92 (112) 97 Room Air Reevaluation Impression EKG, chest x-ray and labs are unremarkable. The patient remains chest pain- free. Overall I believe she is low risk for cardiac disease though would benefit from outpatient follow-up with cardiology. Will refer to her PMD and discharged home. Discussed reasons to return to the emergency department. She understands and agrees with treatment plan. Disposition: HOME, SELF-CARE Condition: Stable Jorge Luis Gutierrez MD Oct 18, 2019 21:14
[2019-10-18] MEDS ORDERED: Ketorolac 30mg Inj IV ONE (21:15)
[2019-10-18 21:40] LABS: ANION GAP 13 mmol/L (5-15); BLOOD UREA NITROGEN 13 mg/dL (7-18); CALCIUM 9.3 MG/DL (8.5-10.1); CARBON DIOXIDE 26 MMOL/L (21-32); CHLORIDE 104 MMOL/L (98-107); CREATININE 1.3 MG/DL (0.55-1.30); POTASSIUM 3.6 MMOL/L (3.5-5.1); SODIUM 143 MMOL/L (136-145)
[2019-10-18 21:46] LABS: ALANINE AMINOTRANSFERASE 29 U/L (12-78); ALBUMIN 3.9 G/DL (3.4-5.0); ALKALINE PHOSPHATASE 90 U/L (46-116); ASPARTATE AMINO TRANSFERASE 14 U/L (15-37); BILIRUBIN,TOTAL 0.4 MG/DL (0.2-1.0)
[2019-10-18 21:55] LABS: BASOPHILS % (AUTO) 1.7 % (0.0-2.0); EOSINOPHILS % (AUTO) 2.3 % (0.0-3.0); HEMOGLOBIN 13.4 G/DL (12.0-16.0); MEAN CORPUSCULAR VOLUME 90 FL (80-99); MONOCYTES % (AUTO) 6.8 % (1.0-10.0); NEUTROPHILS % (AUTO) 48.2 % (45.0-75.0); PLATELET COUNT 333 K/UL (150-450); RED BLOOD COUNT 4.64 M/UL (4.20-5.40); RED CELL DISTRIBUTION WIDTH 14.3 % (11.6-14.8); WHITE BLOOD COUNT 6.1 K/UL (4.8-10.8)
--- NOTE | 2019-10-18 21:55 | NUR ---
ED Nurse Note: Pt states she no longer has pain after receiving medication and feels better.
[2019-10-18 22:10] VITALS: BP 145/85
--- NOTE | 2019-10-18 22:10 | NUR ---
ER DISCHARGE NOTE: Patient is cleared to be discharged per ERMD, pt is aox4, on room air, with stable vital signs. pt was given dc and prescription instructions, pt was able to verbalize understanding, pt id band and iv site removed without complications. pt is able to ambulate with steady gait. pt took all belongings.
--- NOTE | 2019-10-19 08:42 | Diagnostic Imaging Report ---
Indication: Chest pain Technique: One view of the chest Comparison: 09/03/2015 Findings: Lungs and pleural spaces are clear. Heart size is normal. No significant change Impression: No acute process
== END 2019-10-18 22:10 | disposition home or self-care (01) ==
LOC: EMR 21:15
DX: R00.2 Palpitations (principal); R07.9 Chest pain, unspecified; R51 Headache; F32.9 Major depressive disorder, single episode, unspecified; E03.9 Hypothyroidism, unspecified; Z90.710 Acquired absence of both cervix and uterus; Z88.0 Allergy status to penicillin; F31.9 Bipolar disorder, unspecified; G47.00 Insomnia, unspecified
CPT/HCPCS: 36415; 71045; 80053; 84484; 85025; 93005; 96374; J1885; Z7502; 99284

== ENCOUNTER 2019-11-12 09:51 | Emergency (ER) | payer OTHER ==
[~2019-11-12] VITALS: Ht 167.6 cm; Wt 81.6 kg
[~2019-11-12 09:51] MED LIST changes: +NORVASC5 MG ORAL; +TRAZODONE HCL150 MG ORAL
--- NOTE | 2019-11-12 10:06 | NUR ---
ED Nurse Note: Pt walked into ED w/ c/o scalp infection for 1 month. Pt denies pain, but has itching and alopecia. Pt also has rash on upper back and she states she has "sun material in urine." Pt denies pain while urinating. Pt is alert and orientedx4, ambulatory.
[2019-11-12 10:08] VITALS: BP 159/98
[2019-11-12] MEDS ORDERED: MONISTAT-DER1 APPLIC TOPIC (10:24)
[2019-11-12] MEDS ORDERED: HYDROCORTISONE28 G2 TP (10:24)
--- NOTE | 2019-11-12 10:30 | Emergency Room Report ---
History of Present Illness General Chief Complaint: Skin Rash/Abscess Source: Patient, Medical Record Present Illness HPI Patient is a 59-year-old female presents after increased scalp itchiness. Patient states that this is been going on for some time. She had associated hair loss. Previous history of hypothyroidism. She is currently on Synthroid. Patient also takes Abilify. Denies any fever. Reports having some increased hot flashes intermittently. Patient is followed by her primary care physician had previous recent visit. Denies any dizziness or lightheadedness. Had not been having any vomiting or diarrhea. Allergies: Coded Allergies: AMOXICILLIN (Verified Allergy, Unknown, Rash, 11/02/17) COVID-19 Screening Contact w/high risk pt: No Recent Travel to affected area: No Experienced COVID-19 symptoms?: No Patient History Past Medical History: see triage record Now: No Reviewed Nursing Documentation: PMH: Agreed; PSxH: Agreed Nursing Documentation-PMH Hx Cardiac Problems: No - hypothyroid Hx Hypertension: Yes Hx COPD: Yes Hx Diabetes: No Hx Gastrointestinal Problems: Yes - Hysterectomy (2003), gall bladder surgery Hx Neurological Problems: Yes - insomnia Review of Systems All Other Systems: negative except mentioned in HPI Physical Exam Vital Signs Date Time Temp Pulse Resp B/P (MAP) Pulse Ox O2 Delivery O2 Flow Rate FiO2 11/12/19 09:55 98.4 100 20 162/97 (118) 96 Room Air Sp02 EP Interpretation: reviewed, normal General Appearance: normal inspection, well appearing, no apparent distress, alert, GCS 15 Head: atraumatic, other - Mild scalp soft tissue swelling without any significant erythema ENT: normal ENT inspection, hearing grossly normal, normal voice Neck: normal inspection, full range of motion, supple, no bony tend Respiratory: normal inspection, lungs clear, normal breath sounds, no respiratory distress, no retraction, no wheezing Cardiovascular #1: regular rate, rhythm, no edema Gastrointestinal: normal inspection, normal bowel sounds, non tender, soft, no guarding, no hernia Genitourinary: no CVA tenderness Musculoskeletal: normal inspection, back normal, normal range of motion Neurologic: alert, responsive, speech normal, normal inspection Psychiatric: normal inspection, judgement/insight normal, mood/affect normal Medical Decision Making Diagnostic Impression: Primary Impression: Tinea capitis ER Course Patient presented for scalp pain. Differential diagnosis include was not limited to hypothyroidism, tinea capitis, eczema among others. Patient has a benign exam and does not appear to require any imaging or laboratory testing at this time. Patient does not appear to have any evidence of any definite infection. Patient's hair loss she will be empirically treated with some topical antifungal medications. She was also given prescription for topical steroids due to body itching. There is not evidence of any acute skin rash that I can see. Patient will be discharged home. The patient is advised to follow up with primary care doctor in 1-2 days. Patient is advised to return if any worsening condition or if any changes in status that are concerning. This report is dictated with [email or web address] circuit clerk software which may occasionally lead to discrepancies related to use of this software. Last Vital Signs Date Time Temp Pulse Resp B/P (MAP) Pulse Ox O2 Delivery O2 Flow Rate FiO2 11/12/19 10:08 98.4 88 19 159/98 98 Room Air Disposition: HOME, SELF-CARE Condition: Stable Scripts Hydrocortisone 1% Oint (Hydrocortisone 1% Oint*) Y Oint 28 GM TP DAILY for itching, #28 GM Prov: Fernando Neumann MD 11/12/19 Miconazole Nitrate (Miconazole Nitrate) 30 Gm Cream..g. 1 APPLIC TOPIC DAILY, #1 APPLIC Prov: Fernando Neumann MD 11/12/19 Patient Instructions: Scalp Ringworm, [id number] Additional Instructions: Follow up with your doctor for recheck of your thyroid. Return if any fever, or other concerns. Fernando Neumann MD November 12, 2019 10:30
[2019-11-12 10:40] LABS: APPEARANCE,URINE CLEAR; BILIRUBIN, URINE NEGATIVE (NEGATIVE); COLOR,URINE PALE YELLOW; GLUCOSE, URINE (UA) NEGATIVE (NEGATIVE); KETONES,URINE NEGATIVE (NEGATIVE); LEUKOCYTE ESTERASE ,URINE NEGATIVE (NEGATIVE); NITRITE,URINE NEGATIVE (NEGATIVE); PH,URINE 5 (4.5-8.0); PROTEIN,URINE NEGATIVE (NEGATIVE); UROBILINOGEN,URINE NORMAL MG/DL (0.0-1.0)
--- NOTE | 2019-11-12 11:04 | NUR ---
ER DISCHARGE NOTE: Patient is cleared to be discharged per ERMD, pt is aox4, on room air, with stable vital signs. pt was given dc and prescription instructions, pt was able to verbalize understanding, pt id band removed. pt is able to ambulate with steady gait. pt took all belongings.
[2019-11-12 11:05] VITALS: BP 153/97
== END 2019-11-12 11:06 | disposition home or self-care (01) ==
LOC: EMR 10:05
DX: B35.0 Tinea barbae and tinea capitis (principal); G47.00 Insomnia, unspecified; Z90.710 Acquired absence of both cervix and uterus; E03.9 Hypothyroidism, unspecified; Z88.0 Allergy status to penicillin; J44.9 Chronic obstructive pulmonary disease, unspecified; I10 Essential (primary) hypertension
CPT/HCPCS: 81003; 99282

== ENCOUNTER 2019-12-17 04:09 | Emergency (ER) | payer SELFPAY ==
[~2019-12-17] VITALS: Ht 167.6 cm; Wt 79.4 kg
[~2019-12-17 04:09] MED LIST changes: +HYDROCORTISONE28 G2 TP; +MONISTAT-DER1 APPLIC TOPIC
[2019-12-17 04:10] VITALS: BP 132/75
[2019-12-17 04:15] VITALS: BP 135/81
--- NOTE | 2019-12-17 04:15 | NUR ---
ED Nurse Note: Patient walked into the ED from home c/o parasites in her stool and states that the parasites have traveled into her body. Patient aao x 4 and ambulatory with steady gait. Patient no c/o pain and states that she has not seen her primary doctor for this complaint. Patient stable upon assessment.
--- NOTE | 2019-12-17 04:25 | NUR ---
ER DISCHARGE NOTE: Patient is cleared to be discharged per ERMD, pt is aox4, on room air. pt left without signing discharge papers. pt took all belongings. pt stable upon discharge, no acute distress noted during departure.
--- NOTE | 2019-12-17 04:28 | Emergency Room Report ---
History of Present Illness General Chief Complaint: Abdominal Pain Source: Patient Present Illness HPI This is a 59-year-old female with a psychiatric history. She presents with chief complaint of parasitic infection. That she had a bowel movement and thought that she saw some parasite in it. She got a stool sample. She also said that she thinks they are in her brain also. She has been complaining of scalp tingliness and itchiness that been going on for a long time. She has been here several times for that. Patient denies any abdominal pain. No nausea no vomiting. No fever chills. Denies any other complaint. Allergies: Coded Allergies: AMOXICILLIN (Verified Allergy, Unknown, Rash, 11/02/17) COVID-19 Screening Contact w/high risk pt: No Recent Travel to affected area: No Experienced COVID-19 symptoms?: No COVID-19 Testing performed E LEARNING SPECIALIST: No Patient History Past Medical History: see triage record, old chart reviewed Past Surgical History: other Pertinent Family History: none Social History: Denies: smoking Now: No Immunizations: other Reviewed Nursing Documentation: PMH: Agreed; PSxH: Agreed Nursing Documentation-PMH Hx Cardiac Problems: No - hypothyroid Hx Hypertension: Yes Hx COPD: Yes Hx Diabetes: Yes Hx Gastrointestinal Problems: Yes - Hysterectomy (2003), gall bladder surgery Hx Neurological Problems: Yes - insomnia Review of Systems Eye: Denies: eye pain, blurred vision ENT: Denies: ear pain, nose congestion, throat swelling Respiratory: Denies: cough, shortness of breath Cardiovascular: Denies: chest pain, palpitations Gastrointestinal: Denies: abdominal pain, diarrhea, nausea, vomiting Musculoskeletal: Denies: back pain, joint pain Skin: Denies: rash Neurological: Denies: headache, numbness Endocrine: Denies: increased thirst, increased urine Hematologic/Lymphatic: Denies: easy bruising All Other Systems: negative except mentioned in HPI Physical Exam Vital Signs Date Time Temp Pulse Resp B/P (MAP) Pulse Ox O2 Delivery O2 Flow Rate FiO2 12/17/19 04:15 97.9 82 18 135/81 (99) 97 Room Air Vitals normal Sp02 EP Interpretation: reviewed, normal General Appearance: well appearing, no apparent distress, alert Head: normocephalic, atraumatic Eyes: bilateral eye PERRL, bilateral eye EOMI ENT: hearing grossly normal, normal pharynx Neck: full range of motion, supple, no meningismus Respiratory: chest non-tender, lungs clear, normal breath sounds Cardiovascular #1: regular rate, rhythm, no murmur Gastrointestinal: normal bowel sounds, non tender, no mass, no organomegaly, no bruit, non-distended Musculoskeletal: back normal, normal range of motion, gait/station normal Psychiatric: mood/affect normal Medical Decision Making Diagnostic Impression: Primary Impression: Delusional disorder ER Course Presents with delusional disorder. Patient has 1 of those Q-tips specimen in a small container that is ordered by her doctor. She did not turn into her doctor. She said she saw her doctor who asked her for stool sample but instead of bring it to her doctor, she brought it here. I explained to the patient that is not the type of test that we ordered here. There is no emergent issue that would need to be done. Explained to the patient that if she has parasite in her brain she would not walking around without any difficulty. The patient that I would not prescribe any antiparasitic medication without confirmatory diagnosis. There is no emergent testing that can be done tonight. Told patient to take her stool sample and send it to her doctor. Patient was not happy with this explanation got up and left. Last Vital Signs Date Time Temp Pulse Resp B/P (MAP) Pulse Ox O2 Delivery O2 Flow Rate FiO2 12/17/19 04:15 97.9 82 18 135/81 (99) 97 Room Air Status: unchanged Disposition: HOME, SELF-CARE Condition: Stable Charles Alan MD Dec 17, 2019 04:28
== END 2019-12-17 04:30 | disposition home or self-care (01) ==
LOC: EMR 04:30
DX: F22 Delusional disorders (principal); Z88.0 Allergy status to penicillin; I10 Essential (primary) hypertension; J44.9 Chronic obstructive pulmonary disease, unspecified; E11.9 Type 2 diabetes mellitus without complications; Z90.710 Acquired absence of both cervix and uterus; G47.00 Insomnia, unspecified; E03.9 Hypothyroidism, unspecified
CPT/HCPCS: 99281

== ENCOUNTER 2020-08-07 10:10 | Emergency (ER) | payer SELFPAY ==
[~2020-08-07] VITALS: Ht 175.3 cm; Wt 74.8 kg
[2020-08-07] MEDS ORDERED: Haloperidol 5mg/ml Inj ONE (10:13)
[2020-08-07] MEDS ORDERED: LORazepam Inj 2mg/ml 1ml ONE ×2 (10:14→11:53)
[2020-08-07] MEDS ORDERED: Haloperidol 5mg/ml Inj IM ONE (10:15)
[2020-08-07] MEDS ORDERED: LORazepam Inj 2mg/ml 1ml IM ONE (10:15)
[2020-08-07 10:19] VITALS: BP 144/112
--- NOTE | 2020-08-07 10:22 | NUR ---
ED Nurse Note: pt brought in by RA Wells from cousin's house due to ALOC and aggressive behavior. pt is nonverbal and unable to assess mental status. pt opens eyes spontaneuosly and trace the objects. pt gets combative towards staff on any touch. pt tried to hit and kick staff but no verbal comments. no visible wound or trauma noted. per treating plant operator, pt fell in front of them but pt put her arm under her head so no head trauma noted. ERMD at bedside and pt tried to kick staffs including staff. unable to start care including changing pt into gown due to aggressive behavior. no N/V/D noted at this time.
--- NOTE | 2020-08-07 10:26 | Emergency Room Report ---
History of Present Illness General Chief Complaint: Altered Level of Consciousness Source: Medical Record, EMS (Antonio Ku M.D.) Present Illness HPI Disclaimer: Please note that this report is being documented using [employer] technology. This can lead to erroneous entry secondary to incorrect interpretation by the dictating instrument. HPI: 59-year-old female known history of psychiatric disease presents by EMS. She presents for altered mental status. Apparently patient was at a relative's front porch acting erratic, EMS was called. On their arrival patient was combative, did not answer questions. Apparent history of bipolar disorder. On arrival patient remained combative and could not provide any history. Per chart review patient does have a history of psychiatric disease, cholecystitis and cholecystectomy. (Antonio Ku M.D.) Allergies: Coded Allergies: AMOXICILLIN (Verified Allergy, Unknown, Rash, 11/02/17) COVID-19 Screening Contact w/high risk pt: No Recent Travel to affected area: No Experienced COVID-19 symptoms?: No COVID-19 Testing performed VALVE PIPE IRRIGATOR: No COVID-19 Screening: Negative COVID-19 (Antonio Ku M.D.) Patient History Reviewed Nursing Documentation: PMH: Agreed; PSxH: Agreed (Antonio Ku M.D.) Nursing Documentation-PMH Past Medical History: No History, Except For Hx Cardiac Problems: No - hypothyroid Hx Hypertension: Yes Hx COPD: Yes Hx Diabetes: Yes Hx Gastrointestinal Problems: Yes - Hysterectomy (2003), gall bladder surgery 11/08/17 History Of Psychiatric Problem: Yes - bipolar Hx Neurological Problems: Yes - insomnia (Antonio Ku M.D.) Review of Systems All Other Systems: limited - Secondary to altered mental status (Antonio Ku M.D.) Physical Exam Vital Signs Date Time Temp Pulse Resp B/P (MAP) Pulse Ox O2 Delivery O2 Flow Rate FiO2 08/07/20 10:02 99.0 120 20 100 Room Air 08/07/20 10:15 140/90 Sp02 EP Interpretation: reviewed, normal General Appearance: well appearing, other - Combative, kicking and flailing Head: normocephalic, atraumatic Eyes: bilateral eye PERRL, bilateral eye EOMI ENT: hearing grossly normal, moist mucus membranes Neck: full range of motion, supple Respiratory: lungs clear, normal breath sounds, no rhonchi, no respiratory distress, no retraction, no wheezing Cardiovascular #1: normal peripheral pulses, no murmur, tachycardia Gastrointestinal: non tender, soft, non-distended, no guarding Neurologic: alert, no focal defects, other - Patient kicking and flailing, does yell, does not answer questions, does move all extremities equally, Skin: normal color, warm/dry (Antonio Ku M.D.) Medical Decision Making Restraint Attestation Patient did require restraints in the ER. I did perform a [id number] evaluation before and immediately after restraint placement. Patient continued to have violent behavior. Medical: Substance Abuse Behavioral: Bipolar Disorder Reaction to Intervention: No change Restraint Reassesment Patient was reevaluated by me and we did began removing the restraints. (Antonio Ku M.D.) Diagnostic Impression: Primary Impression: Altered mental status Qualified Codes: R40.4 - Transient alteration of awareness ER Course MDM: Differential included but not limited to substance abuse, dehydration, bipolar disorder, call intoxication to name a few Clinical course-in the ER patient was placed in restraints due to violent behavior. She was given Haldol, Benadryl and Ativan. She was given IV fluids. Tachycardia improved. Mental status improved as well. Was more alert and o riented on my reassessment and she was able to be removed from the restraints. We did obtain urine which showed 3+ ketones, negative nitrites. Urine drug screen was negative. She was improved on my reassessment after IV hydration. Her presentation may be secondary to her again diagnosis of bipolar disorder versus dehydration versus again substance use. Labs - Laboratory Tests Test 08/07/20 11:00 08/07/20 13:00 White Blood Count 6.7 K/UL (4.8-10.8) Red Blood Count 5.11 M/UL (4.20-5.40) Hemoglobin 14.4 G/DL (12.0-16.0) Hematocrit 45.9 % (37.0-47.0) Mean Corpuscular Volume 90 FL (80-99) Mean Corpuscular Hemoglobin 28.2 PG (27.0-31.0) Mean Corpuscular Hemoglobin Concent 31.4 G/DL (32.0-36.0) L Red Cell Distribution Width 13.5 % (11.6-14.8) Platelet Count 307 K/UL (150-450) Mean Platelet Volume 6.3 FL (6.5-10.1) L Neutrophils (%) (Auto) 75.2 % (45.0-75.0) H Lymphocytes (%) (Auto) 19.1 % (20.0-45.0) L Monocytes (%) (Auto) 4.4 % (1.0-10.0) Eosinophils (%) (Auto) 0.1 % (0.0-3.0) Basophils (%) (Auto) 1.3 % (0.0-2.0) Sodium Level 145 MMOL/L (136-145) Potassium Level 3.3 MMOL/L (3.5-5.1) L Chloride Level 106 MMOL/L (98-107) Carbon Dioxide Level 27 MMOL/L (21-32) Anion Gap 12 mmol/L (5-15) Blood Urea Nitrogen 17 mg/dL (7-18) Creatinine 1.3 MG/DL (0.55-1.30) Estimated Glomerular Filtration Rate 50.4 mL/min (>60) Glucose Level 156 MG/DL (74-106) H Lactic Acid Level 1.70 mmol/L (0.4-2.0) Calcium Level 10.0 MG/DL (8.5-10.1) Total Bilirubin 1.2 MG/DL (0.2-1.0) H Direct Bilirubin 0.2 MG/DL (0.0-0.3) Aspartate Amino Transferase (AST) 38 U/L (15-37) H Alanine Aminotransferase (ALT) 39 U/L (12-78) Alkaline Phosphatase 121 U/L (46-116) H Troponin I 0.012 ng/mL (0.000-0.056) Total Protein 8.4 G/DL (6.4-8.2) H Albumin 4.1 G/DL (3.4-5.0) Globulin 4.3 g/dL Albumin/Globulin Ratio 1.0 (1.0-2.7) Serum Alcohol < 3 mg/dL Urine Color Pale yellow Urine Appearance Slightly cloudy Urine pH 6 (4.5-8.0) Urine Specific [place] 1.020 (1.005-1.035) Urine Protein 3+ (NEGATIVE) H Urine Glucose (UA) Negative (NEGATIVE) Urine Ketones 3+ (NEGATIVE) H Urine Blood 4+ (NEGATIVE) H Urine Nitrite Negative (NEGATIVE) Urine Bilirubin Negative (NEGATIVE) Urine Urobilinogen Normal MG/DL (0.0-1.0) Urine Leukocyte Esterase Negative (NEGATIVE) Urine RBC Pending Urine WBC Pending Urine Squamous Epithelial Cells Pending Urine Bacteria Pending Urine Opiates Screen Pending Urine Barbiturates Screen Pending Phencyclidine (PCP) Screen Pending Urine Amphetamines Screen Pending Urine Benzodiazepines Screen Pending Urine Cocaine Screen Pending Urine Marijuana (THC) Screen Pending On reevaluation: Patient alert, oriented, states she lives with her . Will attempt to call family and DC Plan-discharge home, encourage her p.o. medications, (Antonio Ku M.D.) ER Course Please see above note. Patient sedated, not answering questions. Apparently attempts to call unsuccessful. I had ordered that social work assistant evaluate the patient and try to locate family . When the arrived the patient was not in the room anymore. The nurse did not see the patient depart. 1625 We notified [employer] of patient's elopement with IV possibly. (Bert Garcia MD) EKG Diagnostic Results Rate: tachycardiac Rhythm: other - sinus tachycardia ST Segments: no acute changes (Antonio Ku M.D.) Rhythm Strip Diag. Results EP Interpretation: yes Rate: 89 (Antonio Ku M.D.) Chest X-Ray Diagnostic Results Chest X-Ray Diagnostic Results : Chest X-Ray Ordered: Yes # of Views/Limited/Complete: 1 View Indication: Shortness of Breath Interpretation: no consolidation, no effusion, no pneumothorax Impression: No acute disease Electronically Signed by: Antonio Ku MD (Antonio Ku M.D.) CT/MRI/US Diagnostic Results CT/MRI/US Diagnostic Results : Impression CT brain No acute process (Antonio Ku M.D.) Last Vital Signs Date Time Temp Pulse Resp B/P (MAP) Pulse Ox O2 Delivery O2 Flow Rate FiO2 08/07/20 10:19 118 25 Room Air 08/07/20 10:19 99.0 144/112 100 Status: improved (Antonio Ku M.D.) Last Vital Signs Date Time Temp Pulse Resp B/P (MAP) Pulse Ox O2 Delivery O2 Flow Rate FiO2 08/07/20 14:25 91 16 157/84 98 Room Air 08/07/20 10:19 99.0 Status: improved (Bert Garcia MD) Disposition: ELOPED Condition: Improved Antonio Ku M.D. Aug 07, 2020 10:26 Bert Garcia MD Aug 07, 2020 16:07
[2020-08-07] MEDS ORDERED: DiphenhydrAMINE 50mg/ml Inj ONE (10:29)
[2020-08-07] MEDS ORDERED: DiphenhydrAMINE 50mg/ml Inj IM ONE (10:30)
--- NOTE | 2020-08-07 10:40 | NUR ---
ED Nurse Note: x-ray at bedside.
--- NOTE | 2020-08-07 10:51 | NUR ---
ED Nurse Note: pt more drowsy due to IM medications. changed pt to gown and EKG at bedside.
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
--- NOTE | 2020-08-07 11:08 | Diagnostic Imaging Report ---
Indication: Shortness of breath Technique: XRAY Chest 1v Comparison: 10/18/2019 Findings: Heart size and mediastinal contours are within normal limits for AP technique. There is no focal airspace consolidation, pneumothorax or pleural effusion. Osseous structures demonstrate no acute abnormality. Impression: No radiographic evidence of acute cardiopulmonary disease.
[2020-08-07 11:12] LABS: BASOPHILS % (AUTO) 1.3 % (0.0-2.0); EOSINOPHILS % (AUTO) 0.1 % (0.0-3.0); HEMATOCRIT 45.9 % (37.0-47.0); HEMOGLOBIN 14.4 G/DL (12.0-16.0); LYMPHOCYTES % (AUTO) 19.1 % (20.0-45.0); MEAN CORPUSCULAR VOLUME 90 FL (80-99); MONOCYTES % (AUTO) 4.4 % (1.0-10.0); NEUTROPHILS % (AUTO) 75.2 % (45.0-75.0); PLATELET COUNT 307 K/UL (150-450); RED BLOOD COUNT 5.11 M/UL (4.20-5.40); RED CELL DISTRIBUTION WIDTH 13.5 % (11.6-14.8); WHITE BLOOD COUNT 6.7 K/UL (4.8-10.8)
[2020-08-07 11:21] LABS: ANION GAP 12 mmol/L (5-15); BLOOD UREA NITROGEN 17 mg/dL (7-18); CARBON DIOXIDE 27 MMOL/L (21-32); CHLORIDE 106 MMOL/L (98-107); CREATININE 1.3 MG/DL (0.55-1.30); POTASSIUM 3.3 MMOL/L (3.5-5.1); SODIUM 145 MMOL/L (136-145)
--- NOTE | 2020-08-07 11:25 | NUR ---
ED Nurse Note: pt taken to CT with stable vs and sleeping.
[2020-08-07 11:32] LABS: ALANINE AMINOTRANSFERASE 39 U/L (12-78); ALBUMIN 4.1 G/DL (3.4-5.0); ALKALINE PHOSPHATASE 121 U/L (46-116); ASPARTATE AMINO TRANSFERASE 38 U/L (15-37); BILIRUBIN,TOTAL 1.2 MG/DL (0.2-1.0)
[2020-08-07 11:33] LABS: BILIRUBIN,DIRECT 0.2 MG/DL (0.0-0.3)
--- NOTE | 2020-08-07 11:53 | NUR ---
ED Nurse Note: pt is awake and combative towards staff again. Received ERMD verbal order Ativan IVP 2mg. also received verbal order to put the order. ERMD with another pt.
--- NOTE | 2020-08-07 11:56 | Diagnostic Imaging Report ---
Indication: Altered mental status Technique: Continuous helical CT scanning of the head was performed without intravenous contrast material. Axial and coronal 5 mm sections were generated. Radiation dose was minimized using automated exposure control Dose: Total Dose Length Product - DLP 1018.[address] Dose Index - CTDIvol(s) 53.4 mGy. Comparison: 09/03/2015 FINDINGS: There is no acute intracranial hemorrhage, mass effect or cortical edema. There is no shift of the midline structures. No hydrocephalus or effacement of the basal cisterns. Visualized mastoid air cells and paranasal sinuses are unremarkable. No focal lesions of the bony calvarium or soft tissues of the scalp are seen. IMPRESSION: No evidence of acute intracranial hemorrhage, mass effect or cortical edema. MRI may be obtained for more sensitive evaluation as clinically indicated. The CT scanner at [facility] is accredited by the [employer] and the scans are performed using protocols designed to limit radiation exposure to as low as reasonably achievable to attain images of sufficient resolution adequate for diagnostic evaluation.
[2020-08-07] MEDS ORDERED: LORazepam Inj 2mg/ml 1ml IV ONE (12:00)
[2020-08-07 12:20] VITALS: BP 166/94
[2020-08-07 13:18] LABS: APPEARANCE,URINE SLIGHTLY CLOUDY; BILIRUBIN, URINE NEGATIVE (NEGATIVE); COLOR,URINE PALE YELLOW; GLUCOSE, URINE (UA) NEGATIVE (NEGATIVE); KETONES,URINE 3+ (NEGATIVE); LEUKOCYTE ESTERASE ,URINE NEGATIVE (NEGATIVE); NITRITE,URINE NEGATIVE (NEGATIVE); PH,URINE 6 (4.5-8.0); PROTEIN,URINE 3+ (NEGATIVE); UROBILINOGEN,URINE NORMAL MG/DL (0.0-1.0)
--- NOTE | 2020-08-07 13:38 | NUR ---
ED Nurse Note: [phone] pt provided her number. no answered. RACHIDD made aware.
[2020-08-07 14:25] VITALS: BP 157/84
--- NOTE | 2020-08-07 16:19 | NUR ---
ED Nurse Note: SW to come and eval pt per md order.
--- NOTE | 2020-08-07 16:20 | NUR ---
RN note: offer round to pt to take V/S, pt not in room, no belonging at the room. PT is not in the ED or waiting room. provider notified and supercharger mechanic.
--- NOTE | 2020-08-07 16:27 | NUR ---
TELECOMMUNICATIONS LINE INSTALLER NOTE Pt was not in her room and this SW was unable to find pt. SW attempted to call pt's , Wil Conner, /[phone], calls were not answered w/o vm option. Addendum: 08/07/20 at 1630 by DERRELL SHULTZ UDS all negative per chart review.
--- NOTE | 2020-08-07 16:36 | NUR ---
ELOPEMENT: pt not in room as noted by primary rn. pt apparent elopement. no iv site noted in room or trash. [employer] non urgent dispatch notified to do check at pt home.
--- NOTE | 2020-08-07 16:53 | NUR ---
ED Nurse Note: [employer] dispatch curing press operator #[id number] aware of pt's home address and clothing description to do check on pt.
== END 2020-08-07 16:54 | disposition left against medical advice (07) ==
LOC: EDBD 10:10 → EMR 10:32
DX: R40.4 Transient alteration of awareness (principal); F31.9 Bipolar disorder, unspecified; E03.9 Hypothyroidism, unspecified; I10 Essential (primary) hypertension; J44.9 Chronic obstructive pulmonary disease, unspecified; Z90.710 Acquired absence of both cervix and uterus
CPT/HCPCS: 36415; 70450; 71045; 80053; 80307; 81003; 82248; 83605; 84484; 85025; 93005; 96361; 96372; 96374; 99284; G0480; J1200; J1630

== ENCOUNTER 2020-08-08 20:28 | Emergency (ER) | payer SELFPAY ==
--- NOTE | 2020-08-08 20:40 | NUR ---
no answer in lobby or out side, will re-attmpt.
--- NOTE | 2020-08-08 20:55 | NUR ---
ED Nurse Note: pt still not in lobby when called, pt not outside and was seen leaving hospital grounds by security,
--- NOTE | 2020-08-09 03:10 | Emergency Room Report ---
History of Present Illness General Chief Complaint: To Be Triaged Present Illness HPI Patient presented to the emergency department but left prior to triage. Allergies: Coded Allergies: AMOXICILLIN (Verified Allergy, Unknown, Rash, 11/02/17) COVID-19 Screening Contact w/high risk pt: No Recent Travel to affected area: No Experienced COVID-19 symptoms?: No Patient History Past Medical History: old chart reviewed Past Surgical History: feng, hysterectomy Reviewed Nursing Documentation: PMH: Agreed Nursing Documentation-PMH Hx Cardiac Problems: No - hypothyroid Hx Hypertension: Yes Hx COPD: Yes Hx Diabetes: Yes Hx Gastrointestinal Problems: Yes - Hysterectomy (2003), gall bladder surgery 11/08/17 Hx Neurological Problems: Yes - insomnia Medical Decision Making Diagnostic Impression: Primary Impression: Patient left without being seen ER Course Patient left the emergency department prior to triage. Disposition: LEFT W/OUT BEING SEEN Referrals: NOT CHOSEN IPA/,REFERRING (PCP) Bert Garcia MD Aug 09, 2020 03:10
== END 2020-08-08 20:55 | disposition left against medical advice (07) ==
LOC: EMR 20:29
DX: Z53.21 Procedure and treatment not carried out due to patient leaving prior to being seen by health care provider (principal); E03.9 Hypothyroidism, unspecified; I10 Essential (primary) hypertension; J44.9 Chronic obstructive pulmonary disease, unspecified; E11.9 Type 2 diabetes mellitus without complications; Z90.710 Acquired absence of both cervix and uterus; Z88.1 Allergy status to other antibiotic agents